=== PATIENT | male | born 1945 | race Caucasian/White ===

== ENCOUNTER 2020-01-21 12:41 | Outpatient (CLI) | payer MEDICARE, OTHER ==
[~2020-01-21 12:41] MED LIST: Magnevist 469MG/ML 20 ML VIAL ONE
--- NOTE | 2020-01-21 15:21 | MRI ---
MR OF THE PELVIS WITH AND WITHOUT CONTRAST INDICATION: Elevated PSA COMPARISON: None TECHNIQUE: Multiplanar, multisequence MR images were obtained of the pelvis with and without IV contr ast. 20 cc of MultiHance was utilized for the examination. The examination was reviewed on a separate [employer] 3-D workstation for multiplanar metric evaluation. FINDINGS: Prostate size: The prostate measured 6.2 x 5.2 x 6.1cm. 102.92 cc. Peripheral zone: No area of restricted diffusion is seen within the peripheral zone. Central zone: No suspicious signal abnormality or focal lesion. There are numerous prominent BPH nodu le seen within the transitional zone. Neural vasculature: No evidence of neurovascular invasion Regional lymphadenopathy: None Dynamic contrast enhancement: Negative. Osseous structures: No suspicious osseous lesion is identified. Additional findings: There are scattered colonic diverticulosis. IMPRESSION: 1. PIRADS 2- Low (clinically significant cancer is unlikely to be present.)
== END 2020-01-21 12:42 | disposition home or self-care (01) ==
LOC: TBSIIMAG 12:41
PROVIDERS: ATTEND Urology
DX: R97.20 Elevated prostate specific antigen [PSA] (principal)
CPT/HCPCS: 72197; 82565; A9579

== ENCOUNTER 2020-12-18 12:49 | Outpatient (CLI) | payer MEDICARE, OTHER | END 2020-12-18 12:50 | disposition home or self-care (01) | LOC: BICMRI 12:49 | PROVIDERS: ATTEND Internal Medicine Nephrology | DX: N28.89 Other specified disorders of kidney and ureter (principal); K80.20 Calculus of gallbladder without cholecystitis without obstruction; N28.1 Cyst of kidney, acquired; K86.2 Cyst of pancreas | CPT/HCPCS: 74183; 82565 ==